=== PATIENT | female | born 2000 | race Caucasian/White ===

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

== ENCOUNTER 2019-04-23 16:27 | Emergency (ER) | payer OTHER ==
[~2019-04-23] VITALS: Ht 160 cm; Wt 76.1 kg
[2019-04-23 16:27] VITALS: BP 138/76
[~2019-04-23 16:27] MED LIST changes: -ACET50TA PO; +BACT800T5 PO; +CIPR-249 PO; +MAPA500T2 PO; +NEXP1IMP SC; +PYRI1TAB5 PO; +ZOFR4TAB14 PO
== END 2019-04-23 17:45 | disposition left against medical advice (07) ==
LOC: M ED 16:27
DX: H92.03 Otalgia, bilateral (principal); Z53.21 Procedure and treatment not carried out due to patient leaving prior to being seen by health care provider

== ENCOUNTER 2019-05-09 20:27 | Emergency (ER) | payer OTHER ==
[~2019-05-09] VITALS: Ht 157.5 cm; Wt 75.6 kg
[2019-05-09 20:28] VITALS: BP 129/77
[2019-05-09] MEDS ORDERED: NORCO, ANEXSIA 5/325MG TABLET (HYDROcodone/ACETAMINOPHEN) PO ONE (21:15)
[2019-05-09 21:33] LABS: BASO % 0.2 % (0.0-1.0); EOS # 0.1 10^3/uL (0.0-0.50); EOS % 1.5 % (0.0-3.0); HEMATOCRIT 42.7 % (36.0-47.0); HEMOGLOBIN 14.2 g/dl (12.0-15.5); LYMPH # 2.5 10^3/uL (1.5-6.5); MEAN CORPUSCULAR HEMOGLOBIN 29.1 pg (27.0-33.0); MEAN CORPUSCULAR HGB CONC 33.3 g/dl (32.0-36.5); MEAN CORPUSCULAR VOLUME 87.5 fl (80.0-96.0); MONO # 0.8 10^3/uL (0.0-0.8); MONO % 8.4 % (0.0-5.0); NEUTROPHILS # 5.5 10^3/uL (1.8-7.7); NEUTROPHILS % 61.7 % (36.0-66.0); PLATELET COUNT, AUTOMATED 332 10^3/uL (150-450); RED BLOOD COUNT 4.88 10^6/uL (4.00-5.40); WHITE BLOOD COUNT 8.9 10^3/uL (4.0-10.0)
[2019-05-09] MEDS ORDERED: KEFL500C17 PO (21:38)
[2019-05-09] MEDS ORDERED: CEPHALEXIN 500 MG CAP PO ONE (21:45)
== END 2019-05-09 21:44 | disposition home or self-care (01) ==
LOC: M ED 20:27
DX: N10 Acute pyelonephritis (principal); Z87.448 Personal history of other diseases of urinary system; Z79.3 Long term (current) use of hormonal contraceptives

== ENCOUNTER 2019-05-27 11:47 | Emergency (ER) | payer OTHER ==
[~2019-05-27] VITALS: Ht 160 cm; Wt 76.5 kg
[~2019-05-27 11:47] MED LIST changes: +KEFL500C17 PO
[2019-05-27 12:12] LABS: BASO % 0.2 % (0.0-1.0); EOS % 0.4 % (0.0-3.0); HEMATOCRIT 39.8 % (36.0-47.0); HEMOGLOBIN 13.4 g/dl (12.0-15.5); LYMPH # 1.2 10^3/uL (1.5-5.0); MEAN CORPUSCULAR HEMOGLOBIN 29.1 pg (27.0-33.0); MEAN CORPUSCULAR HGB CONC 33.7 g/dl (32.0-36.5); MEAN CORPUSCULAR VOLUME 86.5 fl (80.0-96.0); MONO # 0.5 10^3/uL (0.0-0.8); MONO % 5.1 % (0.0-5.0); NEUTROPHILS # 8.2 10^3/uL (1.5-8.5); PLATELET COUNT, AUTOMATED 242 10^3/uL (150-450)
[2019-05-27 12:44] LABS: ALBUMIN 3.6 GM/DL (3.2-5.2); ALT/SGPT 16 U/L (12-78); BILIRUBIN,DIRECT 0.2 MG/DL (0.0-0.2); BILIRUBIN,TOTAL 0.5 MG/DL (0.2-1.0); BLOOD UREA NITROGEN 10 MG/DL (7-18); CARBON DIOXIDE LEVEL 25 MEQ/L (21-32); CHLORIDE LEVEL 109 MEQ/L (98-107); CREATININE FOR GFR 0.68 MG/DL (0.55-1.30); GLUCOSE, FASTING 88 MG/DL (70-100); LIPASE 76 U/L (73-393); POTASSIUM SERUM 4.3 MEQ/L (3.5-5.1); SODIUM LEVEL 140 MEQ/L (136-145); TOTAL PROTEIN 7.2 GM/DL (6.4-8.2)
[2019-05-27] MEDS ORDERED: KETOROLAC 30 MG/ML VIAL (J1885) IV ONE (13:15)
[2019-05-27] MEDS ORDERED: NS 1,000 ML IV ONE (13:15)
[2019-05-27] MEDS ORDERED: ONDANSETRON 4MG/2ML VIAL (J2405) IV ONE (13:15)
[2019-05-27] MEDS: GASTROGRAFIN SOLUTION 30ML PO SCH ×2 (13:35→15:00)
[2019-05-27] MEDS ORDERED: ISOVUE-370 76% 100ML VIAL (Q9967) As Ordered ONE (15:08)
[2019-05-27] MEDS ORDERED: MORPHINE 4 MG/ML 1ML VIAL/SYRINGE (J2270) IV ONE ×2 (15:30→16:00)
[2019-05-27 17:00] VITALS: BP 111/57
[2019-05-27] MEDS ORDERED: PERC5TAB12 PO (17:12)
--- NOTE | 2019-05-27 19:54 | REP ---
REASON: Left lower quadrant pain. COMPARISON: 11/22/2017 CONTRAST: 100 mL Isovue-370. The lung bases are clear and unchanged. The liver, gallbladder, spleen, pancreas, adrenal glands and kidneys are within normal limits. The abdominal aorta and paraaortic regions are within normal limits. The bowel loops and their mesenteries are within normal limits. There is no free fluid or free air. CT PELVIS: In the left adnexa there is an oval shaped 4 cm sized low density structure which has water Hounsfield's unit readings. There is a small amount of free pelvic fluid. There is no pelvic adenopathy. The pelvic bowel loops were unremarkable. Bone window technique throughout the examination shows no change in the osseous structures. IMPRESSION: Probable left ovarian cyst as described above. There is a small amount of free fluid in the pelvis which is probably physiologic. Electronically Signed by Zana Abarca DO 05/28/2019 10:44 A
--- NOTE | 2019-05-27 20:12 | REP ---
REASON: Left sided pain. COMPARISON: 11/21/2017. Transvesical and transvaginal imaging was obtained. Secondary to the patient's complaint of pain bilateral ovarian Doppler was obtained. The uterus measures 8.6 x 4 x 5.4 cm. The parenchymal echo pattern is within normal limits. The endometrial echo complex is within normal limits measuring 3 mm at its greatest thickness. The right ovary measures 3.8 x 3.3 x 2.3 cm within the right ovary there is a 2.6 x 1.7 x 1.3 cm sized anechoic structure which exhibits posterior wall enhancement and increased through transmission. The right ovarian RI is 0.54. The left ovary measures 4.3 x 3.4 x 4.2 cm. Within the left ovary there is a 3.4 x 3.6 x 3.2 cm sized anechoic structure which exhibits posterior wall enhancement and increased through transmission. There are no papillary projections or internal septations. The urinary bladder measures 8 x 8 x 6 cm. IMPRESSION:Bilateral ovarian cysts. There are simple in appearance. There is no evidence of ovarian torsion. There is a small amount of free fluid in the pelvis most likely physiologic. Electronically Signed by Zana Abarca DO 05/28/2019 10:45 A
== END 2019-05-27 17:40 | disposition home or self-care (01) ==
LOC: M ED 11:47
DX: N83.202 Unspecified ovarian cyst, left side (principal); Z79.3 Long term (current) use of hormonal contraceptives
CPT/HCPCS: 74177; 76830; 76856; 80048; 80076; 81001; 83690; 84702; 85025; 93976; 96361; 96374; 96375; 99285; J1885; J2270; J2405; Q9963; Q9967

== ENCOUNTER → 2019-08-19 | Outpatient (REF) | payer OTHER ==
[~2019-08-19] MED LIST changes: +PERC5TAB12 PO
[2019-08-20 14:44] LABS: CHLAMYDIA DNA AMPLIFICATION NEGATIVE (NEGATIVE); GC DNA AMPLIFICATION NEGATIVE (NEGATIVE)
== END ==
LOC: M LAB REF 13:00
PROVIDERS: ATTEND Physician Assistant
DX: R35.0 Frequency of micturition (principal)

== ENCOUNTER 2019-08-26 00:18 | Emergency (ER) | payer OTHER ==
[~2019-08-26] VITALS: Ht 160 cm; Wt 76.8 kg
[2019-08-26] MEDS ORDERED: NS 1,000 ML IV ONE (01:00)
[2019-08-26] MEDS ORDERED: ONDANSETRON 4MG/2ML VIAL (J2405) IV ONE (01:00)
[2019-08-26] MEDS ORDERED: ACETAMINOPHEN 325 MG TAB PO ONE (01:00)
[2019-08-26 01:44] LABS: BASO % 0.3 % (0.0-1.0); EOS % 0.3 % (0.0-3.0); HEMATOCRIT 39.6 % (36.0-47.0); HEMOGLOBIN 13.1 g/dl (12.0-15.5); LYMPH # 1.3 10^3/uL (1.5-5.0); LYMPH % 21.9 % (24.0-44.0); MEAN CORPUSCULAR HEMOGLOBIN 28.3 pg (27.0-33.0); MEAN CORPUSCULAR HGB CONC 33.1 g/dl (32.0-36.5); MEAN CORPUSCULAR VOLUME 85.5 fl (80.0-96.0); MONO # 0.5 10^3/uL (0.0-0.8); NEUTROPHILS # 4.2 10^3/uL (1.5-8.5); NEUTROPHILS % 69.2 % (36.0-66.0); PLATELET COUNT, AUTOMATED 211 10^3/uL (150-450); RED BLOOD COUNT 4.63 10^6/uL (4.00-5.40); WHITE BLOOD COUNT 6.1 10^3/uL (4.0-10.0)
[2019-08-26] MEDS ORDERED: ONDA4TAB6 PO (02:10)
[2019-08-26 02:58] VITALS: BP 116/59
== END 2019-08-26 03:00 | disposition home or self-care (01) ==
LOC: M ED 00:18
DX: O21.9 Vomiting of pregnancy, unspecified (principal); R10.30 Lower abdominal pain, unspecified; Z3A.01 Less than 8 weeks gestation of pregnancy
CPT/HCPCS: 80047; 81001; 84702; 85025; 96361; 96374; 99284; J2405

== ENCOUNTER 2019-10-08 07:41 | Day surgery (SDC) | payer OTHER ==
[~2019-10-08] VITALS: Ht 160 cm; Wt 73.5 kg
[~2019-10-08 07:41] MED LIST changes: +DOXYCYCLINE HYCLATE 100 MG TAB PO ONE; +LIDOCAINE 1% MDV 20ML VIAL SQ PRN; +LR 1,000 ML IV ONE; +ONDA4TAB6 PO
[2019-10-08 08:22] LABS: HEMATOCRIT 39.5 % (36.0-47.0); HEMOGLOBIN 13.2 g/dl (12.0-15.5)
[2019-10-08 08:44] LABS: AMORPHOUS SEDIMENT SMALL (NEGATIVE); APPEARANCE, URINE CLOUDY (CLEAR); BACTERIA, URINE AUTO 2+ (NEGATIVE); BILIRUBIN, URINE AUTO NEGATIVE (NEGATIVE); BLOOD, URINE BLOOD 2+ (NEGATIVE); GLUCOSE, URINE (UA) AUTO NEGATIVE (NEGATIVE); KETONE, URINE AUTO NEGATIVE (NEGATIVE); LEUKOCYTE ESTERASE, URINE AUTO 1+ (NEGATIVE); MUCUS, URINE LARGE (NEGATIVE); NITRITE, URINE AUTO NEGATIVE (NEGATIVE); PROTEIN, URINE AUTO 1+ mg/dL (NEGATIVE); RBC, URINE AUTO 9 /HPF (0-3); SQUAMOUS EPITHELIAL CELL UR AU 54 /HPF (0-6); WBC, URINE AUTO 33 /HPF (0-3)
[2019-10-08 08:46] LABS: COLOR, URINE YELLOW (YELLOW)
[2019-10-08] MEDS ORDERED: MIDAZOLAM INJ 2 MG/2 ML VIAL (J2250) As Ordered ONE (09:02)
[2019-10-08] MEDS ORDERED: KETOROLAC 60 MG/2 ML VIAL (J1885) As Ordered ONE ×3 (09:03→10:35)
[2019-10-08] MEDS ORDERED: propofoL 200 MG/20 ML VIAL As Ordered ONE (09:03)
[2019-10-08] MEDS ORDERED: ONDANSETRON 4MG/2ML VIAL (J2405) As Ordered ONE (09:03)
[2019-10-08] MEDS ORDERED: LIDOCAINE 2% INJ 100 MG/5 ML SDV (FOR ANES.) As Ordered ONE (09:03)
[2019-10-08] MEDS ORDERED: fentaNYL 100 MCG/2 ML INJECTION (J3010) As Ordered ONE (09:03)
[2019-10-08] MEDS ORDERED: dexameTHASONE 4 MG/ML 1ML VIAL (J1100) As Ordered ONE ×2 (09:05→10:05)
[2019-10-08] MEDS ORDERED: LIDOCAINE W/EPINEPHRINE 1% 20ML VIAL As Ordered ONE (10:05)
[2019-10-08] MEDS ORDERED: miSOPROStol 200 MCG TAB (S0191) As Ordered ONE ×2 (10:19→10:20)
[2019-10-08] MEDS ORDERED: METOCLOPRAMIDE INJ 10MG/2ML VIAL (J2765) As Ordered ONE (10:21)
[2019-10-08] MEDS ORDERED: MEPERIDINE INJ 25 MG/ML VIAL (J2175) IV PRN (10:45)
[2019-10-08] MEDS ORDERED: LR 1,000 ML IV SCH ×2 (10:45)
[2019-10-08] MEDS ORDERED: METOCLOPRAMIDE INJ 10MG/2ML VIAL (J2765) IV PRN (10:45)
[2019-10-08] MEDS ORDERED: fentaNYL 100 MCG/2 ML INJECTION (J3010) IV PRN (10:45)
[2019-10-08] MEDS ORDERED: ONDANSETRON 4MG/2ML VIAL (J2405) IV PRN (10:45)
[2019-10-08] MEDS ORDERED: PERCOCET 5MG/325MG TAB PO PRN (10:45)
--- NOTE | 2019-10-08 10:55 | POST-OPPD ---
Postoperative Procedure Note Date Of Procedure: Oct 08, 2019 PREOPERATIVE DIAGNOSIS: Missed POSTOPERATIVE DIAGNOSIS: Missed FINDINGS: products of conception PROCEDURE: suction dilation and curettage SURGEON: Dionne Kaba DO ANESTHESIA: General SPECIMENS: products of conception ESTIMATED BLOOD LOSS: 100 REPLACED: LR 1000cc DRAINS: none COMPLICATIONS: none POSTOPERATIVE CONDITION: stable Detail procedure note: Operative findings: intrauterine contents consistent with product of conception. Description of procedure: The risks, benefits, indications and alternatives of the procedure were reviewed with the patient and informed consent was obtained. The patient was taken to [facility] operating room with IV running. Patient under general with LMA. Patient placed in lithotomy position. Patient vagina and perineum prepped and draped in the usual sterile fashion. Speculum placed vaginally and cervix visualized. The anterior of cervix grasp with single tooth tenaculum. Bilateral uterosacral injected with lidocaine 1% with epi for local block. Cervix dilated to 8mm. Curved suction curette (8mm) used with multiple passes until no additional tissue is retrieved. Medium sharp curette used until a gritty texture is felt on all four quadrants. Suction curette reintroduced to remove remainder of tissue. There was brisk bleeding during curetting. Bleeding subsided with bimanual massage. Cytotec 800mcg placed rectally. All instruments removed from the vagina. Sponge and instruments count correct x 2. Patient was taken out of OR in stable condition. DIONNE KABA DO Oct 08, 2019 10:55
[2019-10-08] MEDS ORDERED: DOXYCYCLINE HYCLATE 100 MG TAB PO ONE (11:00)
[2019-10-08 12:00] VITALS: BP 126/61
== END 2019-10-08 12:41 | disposition home or self-care (01) ==
LOC: M SDC 07:41
PROVIDERS: ATTEND Obstetrics & Gynecology
DX: O02.1 Missed abortion (principal); F41.9 Anxiety disorder, unspecified
CPT/HCPCS: 36415; 59820; 81001; 85014; 85018; 86850; 86900; 86901; 87086; 88305; J1100; J1885; J2250; J2405; J2765; J3010

== ENCOUNTER 2019-10-12 16:03 | Emergency (ER) | payer OTHER ==
[~2019-10-12] VITALS: Ht 160 cm; Wt 72.3 kg
[~2019-10-12 16:03] MED LIST changes: -DOXYCYCLINE HYCLATE 100 MG TAB PO ONE; -LIDOCAINE 1% MDV 20ML VIAL SQ PRN; -LR 1,000 ML IV ONE
[2019-10-12 17:03] LABS: BASO % 0.3 % (0.0-1.0); EOS # 0.1 10^3/uL (0.0-0.5); EOS % 1.6 % (0.0-3.0); HEMATOCRIT 39.8 % (36.0-47.0); HEMOGLOBIN 13.1 g/dl (12.0-15.5); LYMPH # 1.9 10^3/uL (1.5-5.0); LYMPH % 29.8 % (24.0-44.0); MEAN CORPUSCULAR HEMOGLOBIN 28.9 pg (27.0-33.0); MEAN CORPUSCULAR HGB CONC 32.9 g/dl (32.0-36.5); MEAN CORPUSCULAR VOLUME 87.9 fl (80.0-96.0); MONO # 0.5 10^3/uL (0.0-0.8); MONO % 7.7 % (0.0-5.0); NEUTROPHILS # 3.8 10^3/uL (1.5-8.5); NEUTROPHILS % 60.4 % (36.0-66.0); PLATELET COUNT, AUTOMATED 252 10^3/uL (150-450); RED BLOOD COUNT 4.53 10^6/uL (4.00-5.40); WHITE BLOOD COUNT 6.2 10^3/uL (4.0-10.0)
[2019-10-12 17:14] LABS: BLOOD UREA NITROGEN 9 MG/DL (7-18); CALCIUM LEVEL 9.4 MG/DL (8.5-10.1); CARBON DIOXIDE LEVEL 26 MEQ/L (21-32); CHLORIDE LEVEL 109 MEQ/L (98-107); CREATININE FOR GFR 0.78 MG/DL (0.55-1.30); GLUCOSE, FASTING 89 MG/DL (70-100); POTASSIUM SERUM 3.7 MEQ/L (3.5-5.1); SODIUM LEVEL 141 MEQ/L (136-145)
--- NOTE | 2019-10-12 17:28 | REPVR ---
PROCEDURE INFORMATION: Exam: US Pelvis Complete, Transabdominal Exam date and time: 10/12/2019 5:14 PM Age: 19 years old Clinical indication: Other: Heavy vaginal bleeding S/P d&c TECHNIQUE: Imaging protocol: Real-time transabdominal pelvic ultrasound with image documentation. Complete exam. COMPARISON: US PELVIC NON-OB COMPLETE 05/27/2019 4:07 PM FINDINGS: Uterus/cervix: Uterus measures 7.9 x 4.8 x 6.1 cm. Heterogeneous uterine texture may be related to patient acoustic characteristics however the possibility of underlying pathology such as adenomyosis uteri to be considered. Endometrial echo complex 5.9 mm. Right adnexa: Right ovary measures 2.9 x 2.3 x 2.1 cm. Normal flow. Left adnexa: Left ovary measures 3.7 x 1.7 x 2 cm. Normal flow. Free fluid: None. Bladder: Normal. IMPRESSION: Uterus measures 7.9 x 4.8 x 6.1 cm. Heterogeneous uterine texture may be related to patient acoustic characteristics however the possibility of underlying pathology such as adenomyosis uteri to be considered. Should further evaluation be desired correlation with pelvic MRI suggested. Electronically signed by: Fausto Li On 10/12/2019 17:29:27 PM
[2019-10-12] MEDS ORDERED: NS 1,000 ML IV ONE (17:45)
[2019-10-12] MEDS ORDERED: ONDANSETRON 4MG/2ML VIAL (J2405) IV ONE (17:45)
[2019-10-12] MEDS ORDERED: KETOROLAC 30 MG/ML VIAL (J1885) IV ONE (17:45)
[2019-10-12 21:14] VITALS: BP 146/82
--- NOTE | 2019-10-15 15:50 | ED PDOC ---
Post-Departure Follow-Up ft frank ob faxed formal report of pelvic us for fu Maria A Kelley MD Oct 15, 2019 15:50
== END 2019-10-12 21:27 | disposition home or self-care (01) ==
LOC: M ED 16:03
DX: N93.9 Abnormal uterine and vaginal bleeding, unspecified (principal); F17.200 Nicotine dependence, unspecified, uncomplicated; Z87.42 Personal history of other diseases of the female genital tract
CPT/HCPCS: 76856; 80048; 85025; 86850; 86900; 86901; 93976; 96361; 96374; 96375; 99283; J1885; J2405

== ENCOUNTER 2019-11-01 15:11 | Emergency (ER) | payer OTHER ==
[~2019-11-01] VITALS: Ht 160 cm; Wt 71.8 kg
[2019-11-01 15:12] VITALS: BP 136/80
[2019-11-01 16:04] LABS: INFLUENZA A AMPLIFICATION NEGATIVE (NEGATIVE); INFLUENZA B AMPLIFICATION NEGATIVE (NEGATIVE)
--- NOTE | 2019-11-01 17:07 | REP ---
Chest x-ray: Two views. History: Cough and fever . Comparison study: August 05, 2015 . Findings: The lungs are well inflated and free of infiltrate. The pleural angles are sharp. The heart size is normal. Pulmonary vasculature is not increased. No significant bony abnormality is seen. Impression: Negative chest x-ray. Electronically Signed by Franky Ma MD 11/01/2019 04:59 P
[2019-11-01] MEDS ORDERED: ONDANSETRON 4 MG ORAL DISINTEGRATING TAB (Q0162 PER 1MG) PO ONE (17:15)
[2019-11-01] MEDS ORDERED: ONDA4TAB6 PO (17:46)
== END 2019-11-01 18:03 | disposition home or self-care (01) ==
LOC: M ED 15:11
DX: R11.2 Nausea with vomiting, unspecified (principal); R19.7 Diarrhea, unspecified
CPT/HCPCS: 71046; 87502; 87880; 99283; Q0162

== ENCOUNTER → 2019-11-19 | Outpatient (REF) | payer OTHER ==
[2019-11-19 21:10] LABS: INFLUENZA A AMPLIFICATION NEGATIVE (NEGATIVE); INFLUENZA B AMPLIFICATION NEGATIVE (NEGATIVE)
== END ==
LOC: M LAB REF 20:15
PROVIDERS: ATTEND Physician Assistant Medical
DX: J11.1 Influenza due to unidentified influenza virus with other respiratory manifestations (principal)

== ENCOUNTER 2020-03-09 10:03 | Emergency (ER) | payer OTHER ==
[~2020-03-09] VITALS: Ht 160 cm; Wt 73.1 kg
[2020-03-09] MEDS ORDERED: KEFL500C17 PO (12:26)
[2020-03-09 12:30] VITALS: BP 127/78
== END 2020-03-09 12:38 | disposition home or self-care (01) ==
LOC: M ED 10:03
DX: N30.90 Cystitis, unspecified without hematuria (principal); Z32.01 Encounter for pregnancy test, result positive; F41.9 Anxiety disorder, unspecified

== ENCOUNTER 2020-04-20 20:40 | Emergency (ER) | payer OTHER ==
[2020-04-20] MEDS ORDERED: AUGMENTIN 875 MG TAB As Ordered ONE (21:48)
[2020-04-20] MEDS ORDERED: AUGMENTIN 875 MG TAB ONE (21:48)
== END 2020-04-20 21:52 | disposition home or self-care (01) ==
LOC: M ED 20:40
DX: O99.511 Diseases of the respiratory system complicating pregnancy, first trimester (principal); J02.9 Acute pharyngitis, unspecified; Z3A.12 12 weeks gestation of pregnancy

== ENCOUNTER 2020-05-21 20:27 | Emergency (ER) | payer OTHER ==
[~2020-05-21] VITALS: Ht 160 cm; Wt 72.6 kg
[2020-05-21 22:32] LABS: EOS % 0.1 % (0.0-3.0); HEMATOCRIT 37.3 % (36.0-47.0); HEMOGLOBIN 12.6 g/dl (12.0-15.5); LYMPH # 1.4 10^3/uL (1.5-5.0); LYMPH % 19.1 % (24.0-44.0); MEAN CORPUSCULAR HEMOGLOBIN 29.2 pg (27.0-33.0); MEAN CORPUSCULAR HGB CONC 33.8 g/dl (32.0-36.5); MEAN CORPUSCULAR VOLUME 86.3 fl (80.0-96.0); MONO # 0.4 10^3/uL (0.0-0.8); MONO % 5.8 % (0.0-5.0); NEUTROPHILS # 5.5 10^3/uL (1.5-8.5); NEUTROPHILS % 74.6 % (36.0-66.0); PLATELET COUNT, AUTOMATED 235 10^3/uL (150-450); RED BLOOD COUNT 4.32 10^6/uL (4.00-5.40); WHITE BLOOD COUNT 7.4 10^3/uL (4.0-10.0)
[2020-05-21 22:52] LABS: ALBUMIN 2.9 GM/DL (3.2-5.2); ALT/SGPT 11 U/L (12-78); BILIRUBIN,DIRECT 0.2 MG/DL (0.0-0.2); BILIRUBIN,TOTAL 0.4 MG/DL (0.2-1.0); BLOOD UREA NITROGEN 7 MG/DL (7-18); CALCIUM LEVEL 8.9 MG/DL (8.5-10.1); CARBON DIOXIDE LEVEL 23 MEQ/L (21-32); CHLORIDE LEVEL 108 MEQ/L (98-107); CREATININE FOR GFR 0.56 MG/DL (0.55-1.30); GLUCOSE, FASTING 89 MG/DL (70-100); LIPASE 74 U/L (73-393); POTASSIUM SERUM 3.5 MEQ/L (3.5-5.1); SODIUM LEVEL 137 MEQ/L (136-145)
[2020-05-21] MEDS ORDERED: NS 1,000 ML IV ONE (23:45)
[2020-05-21] MEDS ORDERED: ONDANSETRON 4MG/2ML VIAL IV ONE (23:45)
--- NOTE | 2020-05-22 01:05 | REPVR ---
PROCEDURE INFORMATION: Exam: US After First Trimester, Transabdominal Exam date and time: 05/21/2020 12:30 AM Age: 19 years old Clinical indication: complicated by abdominal or pelvic pain; Generalized abdominal pain; Second trimester; Gestational age or lmp: 16w1d; ; Additional info: Abd cramping TECHNIQUE: Imaging protocol: Real-time transabdominal obstetrical ultrasound of the maternal pelvis and a second or third trimester with image documentation. COMPARISON: US PELVIC NON-OB COMPLETE 10/12/2019 5:08 PM FINDINGS: Other findings: Sister matter is unremarkable. Stomach is unremarkable. Gestation: Single live intrauterine gestation. heart rate: Embryonic/ heart rate: heart rate measures 146 bpm. Presentation: Fetus is in cephalic lie. Placenta: No placenta previa. Placenta is posterior. Amniotic fluid: Amniotic fluid is adequate. ANATOMY: Midline falx: Normal. Cerebellum: Normal. Cerebral ventricles: Normal. Cisterna magna: Normal. Septum pellucidum: Normal. Upper lip and nose: Upper lips are unremarkable. Heart four-chamber view, heart size and position: Four-chamber heart is unremarkable. kidneys: Kidneys are not well seen because of age. stomach: Normal. urinary bladder: Bladder is normal. Spine: Normal. Umbilical cord insertion site into the abdomen: Umbilical cord insertion on the fetus is unremarkable. Umbilical cord vessel number: Three-vessel umbilical cord is unremarkable. Arms and hands: Normal upper extremities. Legs and feet: Normal lower extremities. external genitalia: Obscured by position. BIOMETRY: Gestational age (AUA): Estimated gestational age is 16 weeks 5 days. Estimated due date (AUA): Estimated due date is 11/01/2020. Estimated weight: 164 g. Biparietal diameter: BPD is 3.5 cm. 16 weeks 6 days. 75 percentile. Head circumference: Head circumference is 12.5 cm. 16 weeks 4 days. 55 percentile. Abdominal circumference: circumference is 10.4 cm. 16 weeks 3 days. 60th percentile. Femur length: Femur length is 2.3 cm. 17 weeks 0 days. 76 percentile. MATERNAL ANATOMY: Uterus: Unremarkable. No masses. Cervix: Cervix measures 4.9 cm in length. Cervix is closed. Right adnexa: Ovary is obscured by overlying bowel gas. Left adnexa: Ovary is obscured by overlying bowel gas. Urinary bladder: Bladder is unremarkable. IMPRESSION: 1. Single live intrauterine gestation. 2. Estimated gestational age is 16 weeks 5 days. 3. Estimated due date is 11/01/2020. 4. Anatomical survey as described. 5. Recommend follow-up anatomical survey at 19-20 weeks gestational age. Electronically signed by: Coco South On 05/22/2020 01:04:40 AM
[2020-05-22] MEDS ORDERED: ONDA4TAB6 PO (03:12)
[2020-05-22 03:36] VITALS: BP 122/70
== END 2020-05-22 03:37 | disposition home or self-care (01) ==
LOC: M ED 20:27
DX: O21.0 Mild hyperemesis gravidarum (principal); Z3A.16 16 weeks gestation of pregnancy
CPT/HCPCS: 76811; 80048; 80076; 81001; 83690; 85025; 96361; 96374; 99284; J2405

== ENCOUNTER 2020-09-16 00:59 | Outpatient (CLI) | payer OTHER ==
[~2020-09-16] VITALS: Ht 160 cm; Wt 85.0 kg
[2020-09-16 01:13] VITALS: BP 114/64
[2020-09-16 01:45] VITALS: BP 114/64
[2020-09-16 02:23] LABS: BASO % 0.2 % (0.0-1.0); EOS % 0.4 % (0.0-3.0); HEMATOCRIT 30.9 % (36.0-47.0); LYMPH # 1.7 10^3/uL (1.5-5.0); LYMPH % 17.7 % (24.0-44.0); MEAN CORPUSCULAR HEMOGLOBIN 27.4 pg (27.0-33.0); MEAN CORPUSCULAR HGB CONC 32.4 g/dl (32.0-36.5); MEAN CORPUSCULAR VOLUME 84.7 fl (80.0-96.0); MONO # 0.7 10^3/uL (0.0-0.8); MONO % 7.1 % (0.0-5.0); NEUTROPHILS % 73.6 % (36.0-66.0); PLATELET COUNT, AUTOMATED 224 10^3/uL (150-450); RED BLOOD COUNT 3.65 10^6/uL (4.00-5.40); WHITE BLOOD COUNT 9.6 10^3/uL (4.0-10.0)
[2020-09-16 02:29] LABS: APPEARANCE, URINE CLOUDY (CLEAR); BACTERIA, URINE AUTO 1+ (NEGATIVE); BILIRUBIN, URINE AUTO NEGATIVE (NEGATIVE); BLOOD, URINE BLOOD NEGATIVE (NEGATIVE); COLOR, URINE YELLOW (YELLOW); GLUCOSE, URINE (UA) AUTO NEGATIVE (NEGATIVE); KETONE, URINE AUTO TRACE mg/dL (NEGATIVE); LEUKOCYTE ESTERASE, URINE AUTO 1+ (NEGATIVE); MUCUS, URINE SMALL (NEGATIVE); NITRITE, URINE AUTO NEGATIVE (NEGATIVE); PROTEIN, URINE AUTO 1+ mg/dL (NEGATIVE); RBC, URINE AUTO 2 /HPF (0-3); SPECIFIC GRAVITY URINE AUTO 1.021 (1.002-1.035); SQUAMOUS EPITHELIAL CELL UR AU 9 /HPF (0-6); WBC, URINE AUTO 42 /HPF (0-3)
[2020-09-16 02:37] VITALS: BP 105/59
--- NOTE | 2020-09-16 06:37 | IPNPDOC ---
Text Note Date of Service The patient was seen on 09/16/20. NOTE Mi is a 19yo at 32+6wks presenting to L&D for c/o painful ctx's x2 hours that have progressed q2-3min apart. She reports having intercourse in the last 24hrs but not immediately prior to onset of ctx's. She also reports losing mucus plug. Denies VB, LOF, or DFM. Denies any other complaints. Reports uncomplicated thus far. Denies h/o PTB in previous . Vitals: normotensive, afebrile NST: reactive Brantley: ctx's q2-3min PE: Gen: well-appearing although noted to be uncomfortable with ctx's. AAO x3 HEENT: NC/AT, airway patent and self-maintained RESP: no exaggerated respiratory effort noted CARDS: well-perfused, no edema ABD: soft, nontender, gravid : NEFG, no pooling, neg valsalva, cervix noted to be dilated 2/80/-2, no VB Ext: no edema, no calf tenderness Labs: UA: concerning for UTI with 42WBCs Urine culture: pending CBC: as below A/P: 19yo at 32+6wks presenting for c/o ctx's and found to have cervical dilation to 2cm with concern for PTL, UTI, and dehydration. -Admit to OBS status at this time for close observation -IV fluids LR 1000ml given as IV bolus. encourage PO hydration -Rocephin for UTI -GBS collected, PCN ordered given status with GBS unk status -BTMZ given with repeat dose ordered q24hrs -Procardia given for tocolysis with resolution of ctx's -Continuous EFM at this time, consider decreasing to NST daily -If patient has resolution of symptoms, consider disposition home with strict labor precautions and close outpatient f/u VS,Fishbone, I+O VS, Fishbone, I+O Laboratory Tests 09/16/20 02:00 Vital Signs Date Time Temp Pulse Resp B/P (MAP) Pulse Ox O2 Delivery O2 Flow Rate FiO2 09/16/20 02:37 97.3 81 105/59 (74) 09/16/20 01:13 18 BECCA PERALES DO Sep 16, 2020 06:37
--- NOTE | 2020-09-16 09:12 | IPNPDOC ---
Obstetrical Progress Note Date of Service Sep 16, 2020 Subjective 19yo at 32w6d with YARON of 05 NOV 2020 in triage for contractions and treated for UTI and was found to be 2 cm dilated. She reports that she is feeling better and denies contractions. She has received 1 dose of betamethasone around 0200 this morning. Objective Vital Signs Date Time Temp Pulse Resp B/P (MAP) Pulse Ox O2 Delivery O2 Flow Rate FiO2 09/16/20 02:37 97.3 81 105/59 (74) 09/16/20 01:13 18 Assessment Heart Rate (FHR): 125 Variability: Moderate Accelerations: Present Decelerations: None Tocometer Contractions: No Sterile Vaginal Examination Dilation: 2cm Effacement (%): 70% Station: -3 Cervical Consistency: Medium Cervical Position: Middle Postion/Presentation: Cephalic presentation Assessment and Plan Age: 19 : 3 Term: 1 Pre-term: 0 Abortions: 1 Livin EGA at Admission: 32 (+6) Weeks & Days 32w6d Status: Reassuring Anticipate: Other Additional Comments Discharge to home, certified not in labor Recommended for pelvic rest until 37 weeks Prescription for keflex QID x10 days Return for betamethasone on 17 SEP 2020 at 0800 Keep next appointment at [facility] PROSTHETIC AIDE on 26 SEP 2020 Discussed daily prophylaxis UTI treatment to be prescribed at next visit Recommended to increase hydration with 3-4 liters of water per day Recommended to complete UC at lab at [facility] after 07 OCT 2020 FKC and PTL precautions discussed Return to L&D if symptoms persist or worsen ERIKA ALEXANDER CNM Sep 16, 2020 09:12
[2020-09-17] MEDS ORDERED: MULTTAB20 PO (09:24)
== END 2020-09-16 09:10 | disposition home or self-care (01) ==
LOC: M LDO 00:59
DX: O23.43 Unspecified infection of urinary tract in pregnancy, third trimester (principal); Z3A.32 32 weeks gestation of pregnancy; O47.03 False labor before 37 completed weeks of gestation, third trimester
CPT/HCPCS: 59025; 81001; 85025; 86780; 86850; 86900; 86901; 87081; 87088; 87186; 96365; 96366; 96372; G0378; G0463; J0696; J0702

== ENCOUNTER 2020-09-17 09:06 | Outpatient (CLI) | payer OTHER ==
[~2020-09-17] VITALS: Ht 160 cm; Wt 84.8 kg
[2020-09-17 09:21] VITALS: BP 126/72
[2020-09-17] MEDS ORDERED: MULTTAB20 PO (09:24)
[2020-09-17] MEDS ORDERED: BETAMETHASONE SOLUSPAN 6MG/ML 5ML VIAL (J0702 PER 3MG) IM ONE (09:45)
== END 2020-09-17 10:15 | disposition home or self-care (01) ==
LOC: M LDO 09:06
PROVIDERS: ATTEND Obstetrics & Gynecology
DX: O47.03 False labor before 37 completed weeks of gestation, third trimester (principal); Z3A.33 33 weeks gestation of pregnancy
CPT/HCPCS: 59025; 96372; G0378; G0463; J0702

== ENCOUNTER 2020-09-20 14:27 | Inpatient (IN) | payer OTHER ==
[~2020-09-20] VITALS: Ht 160 cm; Wt 85.1 kg
[~2020-09-20 14:27] MED LIST changes: +MULTTAB20 PO
[2020-09-20 14:47] VITALS: BP 111/56
[2020-09-20 16:22] VITALS: BP 111/57
[2020-09-20] MEDS ORDERED: ACETAMINOPHEN TAB 650MG DOSE (2X325MG) PO PRN (16:30)
[2020-09-20] MEDS ORDERED: diphenhydrAMINE 25MG CAP PO PRN (16:30)
[2020-09-20] MEDS ORDERED: DOCUSATE SODIUM 100MG CAPSULE PO PRN (16:30)
[2020-09-20 16:36] LABS: HEMATOCRIT 32.2 % (36.0-47.0); HEMOGLOBIN 10.1 g/dl (12.0-15.5); MEAN CORPUSCULAR HEMOGLOBIN 26.4 pg (27.0-33.0); MEAN CORPUSCULAR HGB CONC 31.4 g/dl (32.0-36.5); MEAN CORPUSCULAR VOLUME 84.1 fl (80.0-96.0); PLATELET COUNT, AUTOMATED 241 10^3/uL (150-450); RED BLOOD COUNT 3.83 10^6/uL (4.00-5.40); WHITE BLOOD COUNT 12.4 10^3/uL (4.0-10.0)
[2020-09-20] MEDS: AMPICILLIN SOD 2 GM in D5W MINI-BAG PLUS 100 ML IV SCH ×2 (17:15→23:01)
[2020-09-20 17:39] LABS: CHLAMYDIA DNA AMPLIFICATION NEGATIVE (NEGATIVE); GC DNA AMPLIFICATION NEGATIVE (NEGATIVE)
--- NOTE | 2020-09-20 17:41 | HPEPDOC ---
Obstetrical History & Physical General Date of Admission Sep 20, 2020 at 16:02 History of Present Illness Presents to triage with c/o spotting this AM, initially denies LOF, states occasional cramping and positive movement. After triage evaluation pt states feeling more wet since 1600 on 19Sep2020. Chief Complaint: LOF, pre-term Information Provided By: Patient Age: 19 : 3 Term: 1 Pre-term: 0 Abortions: 1 Livin Care Care: Good Care Dating Final EDC: Nov 05, 2020 Final EDC for Daily Update: Nov 05, 2020 Final EDC by: LMP LMP: January 29, 2021 EGA at Admission: 33 (+3) Antepartum Course Diagnos(e)s PTL, UTI in Height (inches): 63 Pre- weight (lbs.): 167 Admission Weight (lbs.): 190 Change in Weight (lbs.): 23 Past Medical History Past Obstetrical History : Past Obstetrical History: Multigravida (2015) Date of Delivery: Jun 12, 2016 Gestation: 37 Type of Delivery: Spontaneous Vaginal Del. Sex of : Female Weight of (grams): 0. (6#11) Complications: No BIZTALK CONSULTANT History: Spontaneous Past Medical History Medical History migraines Surgical History: Dilatation and Curettage Family History Significant Family History: Cancer (pgm- throat cancer), Diabetes (mgm) Social History Social history Dependant daughter, FOB involved Marital Status: Single Family situation: Spouse/partner home Psychosocial History: No pertinent psych hx * Smoker: non-smoker Alcohol: Denies Drugs: denies Abuse Violence Screening Have you been hit/kicked/slapp: No Have you been sexually assault: No Imunizations Tdap status: current Influenza Status: declined Allergies Coded Allergies: No Known Allergies (Unverified , 04/03/16) Medications Scheduled No122/Iron/Folic Acid ( Multi Tablet) 1 Each Tablet, 1 TAB PO DAILY Physical Examination Physical Examination GENERAL: Alert and oriented times three. BREAST: . ABDOMEN: Gravid and non-tender to touch. FETUS: Is vertex (VTX) by sterile vaginal examination (SVE), fetus is vertex (VTX) by Luis Manuel. HEART RATE: Regular rate and rhythm. LUNGS: Clear to auscultation (CTA). EXTREMITIES: No edema. No clonus. Deep tendon reflexes (DTRs) + . Other physical findings GC/CT, GBS collected and sent. WP/NELI negative, minimal discharge noted, visible membranes, ferning positive. Cervical exam 350/-3 Vital Signs/I&O Vital Signs Date Time Temp Pulse Resp B/P (MAP) Pulse Ox O2 Delivery O2 Flow Rate FiO2 09/20/20 16:22 98.7 92 16 111/57 (75) Laboratory Data [facility] Laboratory Tests 2 09/20/20 15:57: Microbiology Microbiology 09/20/20 Group B Streptococcus Screen (ANDRE), Received Pending Urine Culture: Urinary Tract Infection Pertinent Laboratoy Data Blood Type: O+ RBC Antibody Screen: Negative HIV: Negative Hepatitis B: Negative Rapid Plasma Reagin: Nonreactive Rubella: Immune Chlamydia/Gonorrhea: Negative Group B Streptococcus: Unknown Quad Screen Test: Declined Cystic Fibrosis: Negative Anatomy Ultrasound Ultrasound Date: Jun 18, 2020 Placenta Location: Anterior Normal Anatomy: Yes Placenta Previa: No Estimated Weight (grams): 349 Steroid Therapy Steroid Therapy: Yes Date #1: Sep 16, 2020 Date #2: Sep 17, 2020 Reason PTL Vaginal Examination Dilation: 3 cm Effacement: 50% Station: -3 Cervical Consistency: Soft Cervical Position: Middle Presentation: Cephalic presentation Assessment Heart Rate (FHR): 140 Variability: Moderate Accelerations: Positive Decelerations: None Tocometer Contractions: No Multi-drug resistant Organism: No history of MDRO Assessment/Plan Assessment Mi is a 19-year-old (G)3 para (P)1-0-1-1 at 33+3 weeks by 10+6-week ultrasound. Presents to Labor and Delivery (L&D) for c/o bleeding with finding of PPROM, Betamethasone completed on 17 Sep 2020. Plan Admit and orient. Hide Paster and consent. Diet: reg. Group B Streptococcus (GBS) unk, screening pending. Labs and intravenous (IV) per unit protocol. Counseled on treatment for PPROM and prophylaxis. Saline lock IV, Ampicillin 2gm IV q6hrs x48 hrs Anticipate . Consult NICU DL KANG CNM Sep 20, 2020 17:40
[2020-09-20 19:30] VITALS: BP 127/58
[2020-09-20 22:31] VITALS: BP 107/53
[2020-09-21] VITALS (10 sets, daily range): BP systolic 94–146; BP diastolic 53–67
[2020-09-21] MEDS: AMPICILLIN SOD 2 GM in D5W MINI-BAG PLUS 100 ML IV SCH ×4 (05:04→23:29)
--- NOTE | 2020-09-21 09:33 | IPNPDOC ---
Obstetrical Progress Note Date of Service Sep 21, 2020 Subjective Patient seen this morning. she reports she is doing well without any contractions. she continues to notice some clear vaginal discharge with going to the bathroom. she reports regular movements. she denies any fevers, chills, or fundal tenderness. she has no concerns this morning. FHT: 125, Mod nicholas,+accels, -Decels---Cat I tracing [place]: no contractions SVE: Deferred US: cephalic, MVP 3.7cm PE: Vitals are reviewed and wnl Heart: normal rate Lungs: Normal work of breathing Abd: non tender, no fundal tenderness EXT: Grossly normal Labs GBS pending GC/CT: Neg A/P Mi is a 19-year-old (G)3 para (P)1-0-1-1 at 33+4 weeks by 10+6-week ultrasound admitted for PPROM, Betamethasone completed on 17 Sep 2020. She is on day 2 of latency antibiotics- Ampicillin 1g q6hrs, will transition to 250mg PO amoxicillin starting tomorrow. will goal to delivery at 34 weeks. NICU has been consulted. will continue to monitor for development of chorio. Continue regular diet Continue continuous monitoring induce on tuesday @ 34 weeks. patient is aware of plan of care. Objective Vital Signs Date Time Temp Pulse Resp B/P (MAP) Pulse Ox O2 Delivery O2 Flow Rate FiO2 09/21/20 05:08 97.9 09/21/20 05:04 75 96/53 (67) 09/21/20 03:15 18 MEERA LEYVA MD Sep 21, 2020 09:28
[2020-09-21] MEDS: PRENATAL VITAMINS CHEWABLE TABLET PO SCH (12:10)
[2020-09-22 02:41] VITALS: BP 113/51
[2020-09-22 05:19] VITALS: BP 100/54
[2020-09-22] MEDS: AMPICILLIN SOD 2 GM in D5W MINI-BAG PLUS 100 ML IV SCH (05:20)
--- NOTE | 2020-09-22 05:54 | IPNPDOC ---
Obstetrical Progress Note Date of Service Sep 22, 2020 Subjective Patient seen this morning. she reports she is doing well without any contractions. she continues to notice some clear vaginal discharge with going to the bathroom. she reports regular movements. she also notes some mild contractions every 8-10 min, but unchanged in power since admission. she denies any fevers, chills, or fundal tenderness. she has no concerns this morning. FHT: 135, Mod nicholas,+accels, -Decels---Cat I tracing [place]: no contractions SVE: Deferred US ( on 09/21/20) : cephalic, MVP 3.7cm PE: Vitals are reviewed and wnl Heart: normal rate Lungs: Normal work of breathing Abd: non tender, no fundal tenderness EXT: Grossly normal Labs GBS pending GC/CT: Neg A/P Mi is a 19-year-old (G)3 para (P)1-0-1-1 at 33+5 weeks by 10+6-week ultrasound admitted for PPROM, Betamethasone completed on 17 Sep 2020. She is on day 3 of latency antibiotics- will transition to 250mg PO amoxicillin starting today. will goal to delivery at 34 weeks. NICU has been consulted. will continue to monitor for development of chorio. Continue regular diet Continue continuous monitoring induce on tuesday @ 34 weeks. patient is aware of plan of care. Objective Vital Signs Date Time Temp Pulse Resp B/P (MAP) Pulse Ox O2 Delivery O2 Flow Rate FiO2 09/22/20 05:26 97.6 09/22/20 05:19 71 100/54 (69) 09/21/20 17:40 18 MEERA LEYVA MD Sep 22, 2020 05:54
[2020-09-22] MEDS ORDERED: SLF 3 ML SYR IV PRN (07:15)
[2020-09-22] MEDS: PRENATAL VITAMINS CHEWABLE TABLET PO SCH (10:28)
[2020-09-22 13:36] VITALS: BP 122/76
[2020-09-22] MEDS: AMOXICILLIN 250 MG CAP PO SCH ×2 (13:39→21:34)
[2020-09-22] MEDS: SLF 3 ML SYR IV SCH ×2 (13:40→21:34)
[2020-09-22 18:20] VITALS: BP 135/69
[2020-09-22 22:00] VITALS: BP 134/60
[2020-09-23 02:00] VITALS: BP 109/52
[2020-09-23 06:00] VITALS: BP 124/56
[2020-09-23] MEDS: AMOXICILLIN 250 MG CAP PO SCH ×3 (06:43→21:45)
[2020-09-23] MEDS: SLF 3 ML SYR IV SCH ×3 (06:44→21:17)
--- NOTE | 2020-09-23 08:57 | IPNPDOC ---
Obstetrical Progress Note Date of Service Sep 23, 2020 Subjective Mi reports she is doing well. Denies any ctx's, VB, or DFM. She continues to leak clear fluid. Objective Vital Signs Date Time Temp Pulse Resp B/P (MAP) Pulse Ox O2 Delivery O2 Flow Rate FiO2 09/23/20 06:00 98.0 71 18 124/56 (78) 99 Room Air Assessment Heart Rate Tracing: Other (NST reactive) Tocometer Contractions: No Assessment and Plan Status: Reassuring Group B Streptococcus: Positive Additional Comments PE: Vitals are reviewed and wnl CARDS: well-perfused Lungs: Normal work of breathing Abd: non-tender, no fundal tenderness EXT: Grossly normal Labs GBS POSITIVE GC/CT: Neg A/P Mi is a 19-year-old (G)3 para (P)1-0-1-1 at 33+6 weeks by 10+6-week ultrasound admitted for PPROM, Betamethasone completed on 17 Sep 2020. She is on day 4 of latency antibiotics - will switch to PCN once in labor for GBS ppx NICU has been consulted. will continue to monitor for development of chorio. Continue regular diet Continue APFTs BID Plan to induce tomorrow @ 34 weeks. Patient is aware of plan of care. BECCA PERALES DO Sep 23, 2020 08:57
[2020-09-23 09:55] VITALS: BP 142/75
[2020-09-23] MEDS: PRENATAL VITAMINS CHEWABLE TABLET PO SCH (10:18)
[2020-09-23 12:10] LABS: HEMATOCRIT 30.6 % (36.0-47.0); HEMOGLOBIN 9.5 g/dl (12.0-15.5); MEAN CORPUSCULAR HEMOGLOBIN 26.6 pg (27.0-33.0); MEAN CORPUSCULAR VOLUME 85.7 fl (80.0-96.0); PLATELET COUNT, AUTOMATED 203 10^3/uL (150-450); RED BLOOD COUNT 3.57 10^6/uL (4.00-5.40); WHITE BLOOD COUNT 10.2 10^3/uL (4.0-10.0)
[2020-09-23 14:03] VITALS: BP 148/67
[2020-09-23 17:59] VITALS: BP 140/69
[2020-09-23 22:20] VITALS: BP 134/73
[2020-09-24] VITALS (27 sets, daily range): BP systolic 112–140; BP diastolic 52–85
[2020-09-24] MEDS: SLF 3 ML SYR IV SCH (06:00)
[2020-09-24] MEDS ORDERED: PENICILLIN G POTASSIUM IV 5 MU in D5W MINI-BAG PLUS 100 ML IV STA ×2 (06:13→06:55)
[2020-09-24] MEDS ORDERED: LR 1,000 ML IV SCH (07:05)
--- NOTE | 2020-09-24 07:35 | IPNPDOC ---
Text Note Date of Service The patient was seen on 09/24/20. NOTE Mi is a 19 yo at 34+0 weeks gestation today who was admitted several days ago for PPROM. She has recently completed a course of BTMZ and 5 days of latency antibiotics. Plan was to proceed with delivery at 34 weeks. She has been transferred to L&D today for this reason. Mi reports feeling well today, just nervous. She denies any bleeding or significant contractions. She endorses continued clear leaking fluid. FHR tracing: Cat I with moderate variability, +accels, no decels Plan to proceed with IOL today. Will allow breakfast and then begin pitocin. She was 3cm dilated at her last cervical exam several days ago. Will administer PCN for GBS prophylaxis (apparently she was GBS positive earlier in the ). We reviewed all risks of IOL with pitocin and she elects to proceed. Can have epidural if and when desired. Mi understands her baby will spend time in the NICU after delivery. All patient questions answered. DO JOHN Story Fishbone, I+O Alejandro LOPEZ, I+O Laboratory Tests 09/23/20 11:41 Vital Signs Date Time Temp Pulse Resp B/P (MAP) Pulse Ox O2 Delivery O2 Flow Rate FiO2 09/24/20 06:21 97.5 81 18 140/75 (96) 09/24/20 06:03 96 Room Air SHAMA CONNORS DO Sep 24, 2020 07:35
--- NOTE | 2020-09-24 10:10 | IPNPDOC ---
Text Note Date of Service The patient was seen on 09/24/20. NOTE REVIEW PATIENT PROGRESS 09/24/2020 19YO ADMITTED 09/20/2020 HX SPOTTING SROM CLEAR LIQUOR APPARENTLY BEEN LEAKING 09/19/2020 AT 33.3 WEEKS. FERN POSITIVE GBS PENDING EXAM -3/50%/3 CM . STARTED STEROIDS AND GBS ANTIBIOTICS PLANNED IOL 09/24/2020.SEEN TODAY CATEGORY 1 STRIP OCCASIONAL CONTRACTIONS CERVIX UNCHANGED. PLAN RESUME ANTIBIOTICS , PITOCIN AND COOK'S CATHETER EPIDURAL PRN VS,Fishbone, I+O VS, Fishbone, I+O Laboratory Tests 09/23/20 11:41: White Blood Count 10.2H, Red Blood Count 3.57L, Hemoglobin 9.5L, Hematocrit 30.6L, Mean Corpuscular Volume 85.7, Mean Corpuscular Hemoglobin 26.6L, Mean Corpuscular Hemoglobin Concent 31.0L, Red Cell Distribution Width 13.8, Platelet Count 203, Nucleated Red Blood Cells % (auto) 0.0 Laboratory Tests 09/23/20 11:41 Vital Signs Date Time Temp Pulse Resp B/P (MAP) Pulse Ox O2 Delivery O2 Flow Rate FiO2 09/24/20 06:21 97.5 81 18 140/75 (96) 09/24/20 06:03 96 Room Air Laboratory Tests 09/23/20 11:41: White Blood Count 10.2H, Red Blood Count 3.57L, Hemoglobin 9.5L, Hematocrit 30.6L, Mean Corpuscular Volume 85.7, Mean Corpuscular Hemoglobin 26.6L, Mean Corpuscular Hemoglobin Concent 31.0L, Red Cell Distribution Width 13.8, Platelet Count 203, Nucleated Red Blood Cells % (auto) 0.0 Naveen Lo MD Sep 24, 2020 10:09
[2020-09-24] MEDS: OXYTOCIN DRIP 30 UNITS in IV 1 EA IV SCH ×2 (10:15→13:02)
[2020-09-24 10:17] LABS: HEMATOCRIT 32.6 % (36.0-47.0); HEMOGLOBIN 10.2 g/dl (12.0-15.5); MEAN CORPUSCULAR HEMOGLOBIN 26.9 pg (27.0-33.0); MEAN CORPUSCULAR HGB CONC 31.3 g/dl (32.0-36.5); PLATELET COUNT, AUTOMATED 233 10^3/uL (150-450); RED BLOOD COUNT 3.79 10^6/uL (4.00-5.40); WHITE BLOOD COUNT 11.8 10^3/uL (4.0-10.0)
[2020-09-24] MEDS ORDERED: PENICILLIN G POTASSIUM IV 2.5 MU in IV 1 EA IV SCH (13:00)
[2020-09-24] MEDS ORDERED: BUTORPHANOL 2 MG/ML INJ (J0595) IV ONE (16:45)
[2020-09-24] MEDS ORDERED: PROMETHAZINE INJ 25 MG/ML VIAL (J2550) IV ONE (16:45)
[2020-09-24 18:02] LABS: CORD GAS HCO3 A 26.2 MEQ/L; CORD GAS O2 SAT A 42.3 %; CORD GAS PH A 7.272 UNITS; CORD GAS PO2 A 19.4 mmHg; CORD GAS SBC A 21.3 MEQ/L; CORD GAS TCO2 A 27.9 MEQ/L
[2020-09-24 18:04] LABS: CORD GAS ABE V -4.5; CORD GAS HCO3 V 20.1 MEQ/L; CORD GAS O2 SAT V 84.6 %; CORD GAS PCO2 V 36.2 mmHg; CORD GAS PH V 7.362 UNITS; CORD GAS PO2 V 38.1 mmHg; CORD GAS SBC V 20.5 MEQ/L; CORD GAS TCO2 V 21.2 MEQ/L
[2020-09-24] MEDS ORDERED: METHYLERGONOVINE MALEATE 0.2 MG TAB PO PRN (18:15)
[2020-09-24] MEDS ORDERED: RHOGAM 300 MCG (1500 IU) INJ (J2790) IM SCH (18:15)
[2020-09-24] MEDS ORDERED: BENZOCAINE 20% HEMORRHOIDAL OINTMENT 28GM TUBE TOP PRN (18:15)
[2020-09-24] MEDS ORDERED: ACETAMINOPHEN TAB 650MG DOSE (2X325MG) PO PRN (18:15)
[2020-09-24] MEDS ORDERED: MOM 30ML SUSPENSION UDC PO PRN (18:15)
[2020-09-24] MEDS ORDERED: OXYTOCIN DRIP 30 UNITS in IV 1 EA IV ONE (18:15)
[2020-09-24] MEDS ORDERED: DOCUSATE SODIUM 100MG CAPSULE PO PRN (18:15)
[2020-09-24] MEDS ORDERED: OXYTOCIN INJ 10 UNITS/ML VIAL (J2590) IV ONE (18:15)
[2020-09-24] MEDS ORDERED: ANUSOL HC CREAM 30GM TOP PRN (18:15)
[2020-09-24] MEDS ORDERED: IBUPROFEN 800 MG TAB PO PRN (18:15)
[2020-09-24] MEDS ORDERED: MEASLES,MUMPS,RUBELLA VACCINE INJ (MMR-II) (90707) SC SCH (18:15)
[2020-09-24] MEDS: ACETAMINOPHEN 500 MG TAB PO PRN (20:06)
[2020-09-25] MEDS: ACETAMINOPHEN 500 MG TAB PO PRN ×2 (04:29→14:40)
[2020-09-25 06:00] VITALS: BP 122/55
[2020-09-25 06:42] LABS: HEMOGLOBIN 10.3 g/dl (12.0-15.5); MEAN CORPUSCULAR HEMOGLOBIN 26.7 pg (27.0-33.0); MEAN CORPUSCULAR HGB CONC 31.2 g/dl (32.0-36.5); MEAN CORPUSCULAR VOLUME 85.5 fl (80.0-96.0); PLATELET COUNT, AUTOMATED 260 10^3/uL (150-450); RED BLOOD COUNT 3.86 10^6/uL (4.00-5.40); WHITE BLOOD COUNT 10.9 10^3/uL (4.0-10.0)
--- NOTE | 2020-09-25 07:53 | IPNPDOC ---
Progress Note Date of Service: Sep 25, 2020 Day#: 1 Progress Note SUBJECT: 19year-old 3 now Para 3 status post uncomplicated spontaneous vaginal delivery at 34 weeks' MALE 4 pounds 14 ounces 2210 grams) , doing well day # 1 . She has been ambulating, voiding spontaneously without issue and tolerating regular diet. Breast feeding without issue. Reports lochia is [like a normal period]. Patient is ambulating well. [Reports some cramping with . Denies any pain. Voiding and stooling without difficulty]. OBJECTIVE: VITAL SIGNS: Within normal limits, afebrile. Alert and oriented times three. Breath sounds clear to auscultation. Heart rate: Regular rate and rhythm, no murmurs, rubs or gallops. Abdomen: Fundus firm at U-2. Soft, NTTP. [Minimal] lochia. ASSESSMENT: 19 -year-old 3 now Para 2 status post uncomplicated spontaneous vaginal delivery after BEING STEROID COMPLETE AND GBS COVERAGE with spontaneous rupture of membranes (SROM), delivered at 34 weeks', doing well on day 1. Vitals within normal limits, afebrile, hemodynamically stable with no evidence of infection. PLAN: 1. Discharge tomorrow 2. Tylenol and Motrin for pain. 3. Encourage breast feeding and ambulation. 4. discuss at 6 week pp visit. 5. Routine PP visit in 6 weeks in clinic. 6. Discussed return precautions at length. VS, I&O, 24H, Fishbone Vital Signs/I&O Vital Signs Date Time Temp Pulse Resp B/P (MAP) Pulse Ox O2 Delivery O2 Flow Rate FiO2 09/25/20 06:00 98.2 83 18 122/55 (77) 09/24/20 06:03 96 Room Air I&O- Last 24 Hours up to 6 AM 09/25/20 06:00 Intake Total 208 ml Output Total 900 ml Balance -692 ml Laboratory Data 24H LABS Laboratory Tests 2 09/24/20 10:09: Nucleated Red Blood Cells % (auto) 0.0 09/24/20 17:56: Cord Arterial Blood pH 7.272, Cord Arterial Blood PCO2 58.0, Cord Arterial Blood PO2 19.4, Cord Arterial Blood HCO3 26.2, Cord Arterial Blood Total CO2 27.9, Cord Arterial Blood Base Excess -2.0, Cord Arterial Base Excess (Standard 21.3, Cord Arterial Bld Oxygen Saturation 42.3, Cord Venous Blood pH 7.362, Cord Venous Blood PCO2 36.2, Cord Venous Blood PO2 38.1, Cord Venous Blood HCO3 20.1, Cord Venous Blood Total CO2 21.2, Cord Venous Base Excess (Actual) -4.5, Cord Venous Base Excess (Standard) 20.5, Cord Venous Blood Oxygen Saturation 84.6 09/25/20 05:44: Nucleated Red Blood Cells % (auto) 0.0 CBC/BMP Laboratory Tests 09/24/20 10:09 09/25/20 05:44 Microbiology Microbiology 09/20/20 Group B Streptococcus Screen (ANDRE) - Final, Complete Naveen Lo MD Sep 25, 2020 07:53
[2020-09-25 08:45] VITALS: BP 122/55
[2020-09-25] MEDS: IBUPROFEN 600MG TAB PO PRN ×2 (08:50→19:52)
[2020-09-25] MEDS: PRENATAL VITAMINS CHEWABLE TABLET PO SCH (08:50)
--- NOTE | 2020-09-25 14:44 | DN ---
DELIVERY NOTE DATE OF DELIVERY: 09/24/2020 TIME OF : GENDER: Male. APGARS: 9 and 9. LACERATIONS: None. ANESTHESIA: ESTIMATED BLOOD LOSS: COUNTS: DESCRIPTION OF DELIVERY: This 19-year-old 3, para 2, presently at 34 weeks of gestation for induction of labor because of prolonged rupture of membranes since 09/19/2020. She was GBS positive treated appropriately. Steroid complete. Induction of labor on 09/24/2020. She had IV pain medications. Delivered spontaneously a live male infant 4 pounds 14 ounces (2210 grams). Apgars of 9 and 9 at one and five minutes respectively. Cord around the neck x1 loose. Dr. Casper in attendance for resuscitation. Arterial pH was 7.27, base excess -2.0; venous pH 7.36, base excess -4.5. She had a spontaneous delivery of the placenta three vessels. Membranes and tissues intact. Examination of the vagina anterior, posterior, and lateral hines were complete. No evidence of tears or laceration. The sphincter was tight and the mucosa was intact. In summary, we have a 34 week gestation who delivered a live male infant after prolonged rupture of membranes. GBS positive, steroid complete, antibiotic prophylactically. Patient and baby tolerating procedure well.
[2020-09-25 18:13] VITALS: BP 124/66
[2020-09-26 05:45] VITALS: BP 142/80
[2020-09-26] MEDS ORDERED: AMER20OI TOP (06:44)
[2020-09-26] MEDS ORDERED: IBUP-1022 PO (06:44)
[2020-09-26] MEDS ORDERED: ACET-683 PO (06:44)
--- NOTE | 2020-09-26 07:02 | DS.PDOC ---
Discharge Summary General Date of Admission Sep 20, 2020 at 16:02 Date of Discharge Sep 26, 2020 Discharge Summary HOSPITAL COURSE: Mi is a 19 yo G3 now P2 who was admitted to hospital initially for PROM at 33+3 weeks gestation. She received latency antibiotics and completed a course of BTMZ. She ultimately underwent an IOL at 34+0 weeks on [id number]. She delivered that same day via uncomplicated . Infant did well but was taken to the NICU for prematurity. Her course has been unremarkable. On her day of discharge she met all appropriate discharge criteria. She was ambulating, voiding, tolerating a regular diet, had minimal lochia, and her pain was well controlled with PO pain medications. DISCHARGE MEDICATIONS: Please see below. ALLERGIES: Please see below. PHYSICAL EXAMINATION ON DISCHARGE: VITAL SIGNS: Please see below. GENERAL: AAOX3, laying in bed, NAD, pleasant and conversant ABDOMINAL EXAMINATION: Abdomen soft, nondistended. No tenderness to palpation. Fundus firm at U-2. No fundal tenderness. EXTREMITIES: No edema PSYCHIATRIC EXAMINATION: Affect appropriate LABORATORY DATA: Please see below. ACTIVITY: Pelvic rest for 6 weeks. DIET: Regular DISCHARGE PLAN: Discharge home or to boarder DISPOSITION: .Discharge home or to boarder on [id number] DISCHARGE INSTRUCTIONS: 1. Pelvic rest for 6weeks ITEMS TO FOLLOWUP ON ON OUTPATIENT: 1. appointment in 6-8 weeks after delivery. DISCHARGE CONDITION: Stable TIME SPENT ON DISCHARGE: Greater than 20 minutes. Shama Tatum DO Vital Signs/I&Os Vital Signs Date Time Temp Pulse Resp B/P (MAP) Pulse Ox O2 Delivery O2 Flow Rate FiO2 09/26/20 05:45 97.9 68 20 142/80 (100) 95 Room Air Microbiology Microbiology 09/20/20 Group B Streptococcus Screen (ANDRE) - Final, Complete Discharge Medications Scheduled No122/Iron/Folic Acid ( Multi Tablet) 1 Each Tablet, 1 TAB PO DAILY, (Reported) Scheduled PRN Acetaminophen (Acetaminophen) 500 Mg Tablet, 1,000 MG PO Q6HP PRN for PAIN LEVEL 6-10 Benzocaine (Americaine) 20% Oint...g., 0 DOSE TOP Q4H PRN for PAIN Ibuprofen (Ibuprofen) 600 Mg Tablet, 600 MG PO Q6HP PRN for PAIN LEVEL 1-5 Allergies Coded Allergies: No Known Allergies (Unverified , 04/03/16) SHAMA TATUM DO Sep 26, 2020 07:02
[2020-09-26] MEDS: PRENATAL VITAMINS CHEWABLE TABLET PO SCH (10:53)
== END 2020-09-26 11:00 | disposition home or self-care (01) | DRG 807 ==
LOC: M LDO 14:27 → M LDI 16:02 → M OBS 09-22 14:08 → M LDI 09-24 05:46 → M OBS 09-24 19:48
PROVIDERS: ADMIT Registered Nurse; ATTEND Obstetrics & Gynecology
PROC: 10E0XZZ Delivery of Products of Conception, External Approach (ICD-10-PCS; principal; 2020-09-24)
PROC: 3E033VJ Introduction of Other Hormone into Peripheral Vein, Percutaneous Approach (ICD-10-PCS; 2020-09-24)
DX: O42.113 Preterm premature rupture of membranes, onset of labor more than 24 hours following rupture, third trimester (principal); Z37.0 Single live birth; Z3A.33 33 weeks gestation of pregnancy; O99.824 Streptococcus B carrier state complicating childbirth; O69.81X0 Labor and delivery complicated by cord around neck, without compression, not applicable or unspecified

== ENCOUNTER → 2021-01-09 | Outpatient (REF) | payer MEDICAID ==
[~2021-01-09] MED LIST changes: +ACET-683 PO; +AMER20OI TOP; +IBUP-1022 PO
[2021-01-09 12:16] LABS: HEMATOCRIT 37.8 % (36.0-47.0); MEAN CORPUSCULAR HEMOGLOBIN 26.3 pg (27.0-33.0); MEAN CORPUSCULAR HGB CONC 31.7 g/dl (32.0-36.5); MEAN CORPUSCULAR VOLUME 82.9 fl (80.0-96.0); PLATELET COUNT, AUTOMATED 304 10^3/uL (150-450); RED BLOOD COUNT 4.56 10^6/uL (4.00-5.40); WHITE BLOOD COUNT 8.6 10^3/uL (4.0-10.0)
[2021-01-09 13:33] LABS: HCG, SERUM QUANTITATIVE 7809 MIU/ML; HEPATITIS B SURFACE ANTIGEN NEGATIVE (NEGATIVE); HIV 1&2 SCREEN CENTAUR NEGATIVE (NEGATIVE)
== END ==
LOC: M LAB REF 11:39
PROVIDERS: ATTEND Advanced Practice Midwife
DX: Z36.89 Encounter for other specified antenatal screening (principal)

== ENCOUNTER 2021-02-18 22:15 | Emergency (ER) | payer MEDICAID ==
[~2021-02-18] VITALS: Ht 157.5 cm; Wt 84.5 kg
[2021-02-18 22:16] VITALS: BP 130/85
[2021-02-18 23:13] LABS: BASO % 0.4 % (0.0-1.0); EOS # 0.1 10^3/uL (0.0-0.5); EOS % 1.2 % (0.0-3.0); HEMOGLOBIN 12.4 g/dl (12.0-15.5); LYMPH # 1.3 10^3/uL (1.5-5.0); LYMPH % 25.3 % (24.0-44.0); MEAN CORPUSCULAR HEMOGLOBIN 26.7 pg (27.0-33.0); MEAN CORPUSCULAR HGB CONC 31.8 g/dl (32.0-36.5); MEAN CORPUSCULAR VOLUME 84.1 fl (80.0-96.0); MONO # 0.5 10^3/uL (0.0-0.8); MONO % 8.8 % (2.0-8.0); NEUTROPHILS # 3.3 10^3/uL (1.5-8.5); NEUTROPHILS % 63.9 % (36.0-66.0); PLATELET COUNT, AUTOMATED 245 10^3/uL (150-450); RED BLOOD COUNT 4.64 10^6/uL (4.00-5.40); WHITE BLOOD COUNT 5.1 10^3/uL (4.0-10.0)
[2021-02-18 23:41] LABS: BILIRUBIN,DIRECT 0.1 MG/DL (0.0-0.2); BILIRUBIN,TOTAL 0.3 MG/DL (0.2-1.0); TOTAL PROTEIN 6.8 GM/DL (6.4-8.2)
[2021-02-19] MEDS ORDERED: ONDANSETRON 4MG/2ML VIAL IV ONE (00:45)
[2021-02-19] MEDS ORDERED: NS 500 ML IV ONE (00:45)
[2021-02-19] MEDS ORDERED: ONDA4TAB6 PO (02:55)
--- NOTE | 2021-02-19 09:52 | REP ---
INDICATION: cramping. Preliminary report was given by Catherine johnson at the time the exam was performed. COMPARISON: None. TECHNIQUE: Transabdominal imaging FINDINGS: Within the uterus there is an anechoic structure with increased echoes surrounding it consistent with a decidual reaction. Within the gestational sac there is echogenic material consistent with a pole the mean crown-rump length measurement of which is consistent with an 11 week 5 day gestational age. Based on that the estimated date of delivery is 09/05/2021. Doppler interrogation of the heart shows a heart rate of 149 beats per minute. There is no evidence of a chorionic or subchorionic abnormality. A yolk sac is identified. No maternal adnexal abnormality was recorded. IMPRESSION: Early OB ultrasound as described above. <Electronically signed by Zana Abarca > 02/19/21 [id number]
== END 2021-02-19 03:03 | disposition home or self-care (01) ==
LOC: M ED 22:22
DX: O21.9 Vomiting of pregnancy, unspecified (principal); Z3A.11 11 weeks gestation of pregnancy; Z87.440 Personal history of urinary (tract) infections
CPT/HCPCS: 76801; 80047; 80076; 81001; 83690; 84702; 85025; 96361; 96374; 99284; J2405

== ENCOUNTER 2021-05-01 20:57 | Emergency (ER) | payer MEDICAID ==
[~2021-05-01] VITALS: Ht 160 cm; Wt 89.1 kg
[2021-05-02 00:02] VITALS: BP 139/98
== END 2021-05-02 00:18 | disposition left against medical advice (07) ==
LOC: M ED 20:57
DX: Z53.29 Procedure and treatment not carried out because of patient's decision for other reasons (principal)

== ENCOUNTER → 2021-06-12 | Outpatient (CLI) | payer MEDICAID ==
[2021-06-12 13:25] LABS: HEMATOCRIT 32.5 % (36.0-47.0); HEMOGLOBIN 10.7 g/dl (12.0-15.5); MEAN CORPUSCULAR HEMOGLOBIN 27.6 pg (27.0-33.0); MEAN CORPUSCULAR HGB CONC 32.9 g/dl (32.0-36.5); PLATELET COUNT, AUTOMATED 252 10^3/uL (150-450); RED BLOOD COUNT 3.87 10^6/uL (4.00-5.40); WHITE BLOOD COUNT 8.6 10^3/uL (4.0-10.0)
== END ==
LOC: M LAB 11:35
PROVIDERS: ATTEND Obstetrics & Gynecology
DX: Z34.82 Encounter for supervision of other normal pregnancy, second trimester (principal)

== ENCOUNTER → 2021-07-07 | Outpatient (REF) | payer OTHER, MEDICAID | LOC: M LAB REF 17:08 | PROVIDERS: ATTEND Advanced Practice Midwife | DX: Z87.51 Personal history of pre-term labor (principal); Z34.83 Encounter for supervision of other normal pregnancy, third trimester ==

== ENCOUNTER 2021-07-25 11:00 | Outpatient (CLI) | payer OTHER ==
[~2021-07-25] VITALS: Ht 162.6 cm; Wt 90.9 kg
[2021-07-25] VITALS (8 sets, daily range): BP systolic 120–170; BP diastolic 63–98
[2021-07-25] MEDS ORDERED: HOME MED LIST COMPLETE! XX SCH (11:25)
[2021-07-25 12:25] LABS: HEMATOCRIT 31.8 % (36.0-47.0); MEAN CORPUSCULAR HEMOGLOBIN 25.8 pg (27.0-33.0); MEAN CORPUSCULAR HGB CONC 31.4 g/dl (32.0-36.5); MEAN CORPUSCULAR VOLUME 82.2 fl (80.0-96.0); PLATELET COUNT, AUTOMATED 233 10^3/uL (150-450); RED BLOOD COUNT 3.87 10^6/uL (4.00-5.40); WHITE BLOOD COUNT 9.3 10^3/uL (4.0-10.0)
[2021-07-25 12:46] LABS: ALT/SGPT 9 U/L (12-78); BILIRUBIN,TOTAL 0.5 MG/DL (0.2-1.0); CREATININE FOR GFR 0.55 MG/DL (0.55-1.30); GLOMERULAR FILTRATION RATE > 60.0 (>60); LDH LACTATE DEHYDROGENASE 205 U/L (84-246); URIC ACID 4.5 MG/DL (2.6-6.0)
[2021-07-25 13:36] LABS: TOTAL PROTEIN,RANDOM URINE 32.3 MG/DL (0.0-12.0)
== END 2021-07-25 14:04 | disposition home or self-care (01) ==
LOC: M LDO 11:00
PROVIDERS: ATTEND Obstetrics & Gynecology
DX: O26.853 Spotting complicating pregnancy, third trimester (principal); O26.893 Other specified pregnancy related conditions, third trimester; R25.2 Cramp and spasm; Z3A.34 34 weeks gestation of pregnancy

== ENCOUNTER 2021-08-02 21:13 | Outpatient (CLI) | payer OTHER ==
[~2021-08-02] VITALS: Ht 160 cm; Wt 91.1 kg
[2021-08-02 21:30] VITALS: BP 137/65
[2021-08-02] MEDS ORDERED: HOME MED LIST COMPLETE! XX SCH (21:35)
--- NOTE | 2021-08-02 22:28 | IPNPDOC ---
Text Note Date of Service The patient was seen on 08/02/21. NOTE S: Pt presents to L&D triage with vaginal bleeding after intercourse. Pt states that at home, she was bleeding enough to fill a pad. She complains of cramping but no ctx. No lof. +FM O: FHT 120 mod + accel no decel TOCO acontractile VS BP 137/65 HR 81 RR 18 T 97.8 Gen: alert, oriented, no distress Cards: RRR Pulm: CTAB Abd: gravid, nontender SSE: two scopettes worth of dark red blood in the vault, no pooling of fluid, slow trickle from the cervix A/P: 20yo at 35w0d who presents with vaginal bleeding - cervical bleeding based on SSE - dx w/ chlamydia on 07/07, s/p treatment - pt w/ known advanced cervical dilation - no evidence of PROM on exam - reactive NST, acontractile - will keep for observation/prolonged monitoring - plan to dc home if bleeding stable and FHT is reassuring VS,Alejandro, I+O VS, Alejandro, I+O Vital Signs Date Time Temp Pulse Resp B/P (MAP) Pulse Ox O2 Delivery O2 Flow Rate FiO2 08/02/21 21:30 97.4 81 18 137/65 (89) PRETTY HENNESSY MD Aug 02, 2021 22:28
[2021-08-02 23:25] VITALS: BP 167/83
[2021-08-02 23:30] VITALS: BP 122/64
== END 2021-08-02 23:37 | disposition home or self-care (01) ==
LOC: M LDO 21:13
PROVIDERS: ATTEND Obstetrics & Gynecology
DX: O46.93 Antepartum hemorrhage, unspecified, third trimester (principal); R25.2 Cramp and spasm; Z3A.35 35 weeks gestation of pregnancy

== ENCOUNTER → 2021-08-12 | Outpatient (REF) | payer OTHER, MEDICAID ==
[~2021-08-12] MED LIST changes: +COLA100C5 PO
== END ==
LOC: M LAB REF 11:47
PROVIDERS: ATTEND Advanced Practice Midwife
DX: Z36.85 Encounter for antenatal screening for Streptococcus B (principal); Z3A.00 Weeks of gestation of pregnancy not specified

== ENCOUNTER → 2021-08-12 | Outpatient (REF) | payer OTHER, MEDICAID ==
[2021-08-12 12:24] LABS: TOTAL PROTEIN,RANDOM URINE 18.9 MG/DL (0.0-12.0)
[2021-08-12 12:40] LABS: HEMOGLOBIN 9.7 g/dl (12.0-15.5); MEAN CORPUSCULAR HEMOGLOBIN 25.3 pg (27.0-33.0); MEAN CORPUSCULAR HGB CONC 31.3 g/dl (32.0-36.5); MEAN CORPUSCULAR VOLUME 80.9 fl (80.0-96.0); PLATELET COUNT, AUTOMATED 226 10^3/uL (150-450); RED BLOOD COUNT 3.83 10^6/uL (4.00-5.40); WHITE BLOOD COUNT 7.6 10^3/uL (4.0-10.0)
[2021-08-12 17:12] LABS: ALT/SGPT 8 U/L (12-78); BILIRUBIN,TOTAL 0.4 MG/DL (0.2-1.0); CREATININE FOR GFR 0.63 MG/DL (0.55-1.30); GLOMERULAR FILTRATION RATE > 60.0 (>60); LDH LACTATE DEHYDROGENASE 238 U/L (84-246); URIC ACID 4.4 MG/DL (2.6-6.0)
== END ==
LOC: M LAB REF 11:46
PROVIDERS: ATTEND Advanced Practice Midwife
DX: Z36.9 Encounter for antenatal screening, unspecified (principal); O12.10 Gestational proteinuria, unspecified trimester; Z3A.00 Weeks of gestation of pregnancy not specified

== ENCOUNTER 2021-08-17 12:20 | Inpatient (IN) | payer OTHER, MEDICAID ==
[~2021-08-17] VITALS: Ht 160 cm; Wt 92.6 kg
[2021-08-17] VITALS (8 sets, daily range): BP systolic 119–162; BP diastolic 62–84
[~2021-08-17 12:20] MED LIST changes: -COLA100C5 PO
[2021-08-17] MEDS ORDERED: HOME MED LIST COMPLETE! XX SCH (12:40)
[2021-08-17] MEDS ORDERED: OXYTOCIN DRIP 30 UNITS in IV 1 EA IV PRN (13:15)
[2021-08-17] MEDS ORDERED: TRANEXAMIC ACID INJection 1,000 MG in NS 100 ML IV PRN (13:15)
[2021-08-17] MEDS ORDERED: LIDOCAINE 1% MDV 20ML VIAL INFIL PRN (13:15)
[2021-08-17] MEDS ORDERED: CARBOPROST TROMETHAMINE 250 MCG/ML AMP IM PRN (13:15)
[2021-08-17] MEDS ORDERED: METHYLERGONOVINE MALEATE 0.2 MG/ML VIAL (J2210) IM PRN (13:15)
[2021-08-17] MEDS ORDERED: OXYTOCIN 30 UNITS IN 0.9% NaCl 500ML IV BAG (J2590) As Ordered ONE (13:23)
[2021-08-17 13:32] LABS: HEMATOCRIT 31.9 % (36.0-47.0); MEAN CORPUSCULAR HEMOGLOBIN 25.3 pg (27.0-33.0); MEAN CORPUSCULAR HGB CONC 31.3 g/dl (32.0-36.5); MEAN CORPUSCULAR VOLUME 80.8 fl (80.0-96.0); PLATELET COUNT, AUTOMATED 232 10^3/uL (150-450); RED BLOOD COUNT 3.95 10^6/uL (4.00-5.40); WHITE BLOOD COUNT 11.1 10^3/uL (4.0-10.0)
[2021-08-17] MEDS ORDERED: DOCUSATE SODIUM 100MG CAPSULE PO PRN (13:50)
[2021-08-17] MEDS ORDERED: MEASLES,MUMPS,RUBELLA VACCINE INJ (MMR-II) (90707) SC SCH (13:50)
[2021-08-17] MEDS ORDERED: RHOGAM 300 MCG (1500 IU) INJ (J2790) IM SCH (13:50)
[2021-08-17] MEDS ORDERED: METHYLERGONOVINE MALEATE 0.2 MG TAB PO PRN (13:50)
[2021-08-17] MEDS ORDERED: IBUPROFEN 600MG TAB PO PRN (13:50)
[2021-08-17] MEDS ORDERED: MOM 30ML SUSPENSION UDC PO PRN (13:50)
[2021-08-17] MEDS ORDERED: ACETAMINOPHEN TAB 650MG DOSE (2X325MG) PO PRN (13:50)
[2021-08-17] MEDS ORDERED: ANUSOL HC CREAM 30GM TOP PRN (13:50)
[2021-08-17] MEDS ORDERED: DIBUCAINE 1% OINTMENT 30GM TOP PRN (13:50)
[2021-08-17] MEDS ORDERED: BUTORPHANOL 2 MG/ML INJ (J0595) IV ONE (14:00)
[2021-08-17] MEDS ORDERED: PROMETHAZINE INJ 25 MG/ML VIAL (J2550) IV ONE (14:00)
[2021-08-17] MEDS: PRENATAL VITAMINS CHEWABLE TABLET PO SCH (14:07)
[2021-08-17] MEDS: ACETAMINOPHEN 500 MG TAB PO PRN ×2 (14:10→21:07)
[2021-08-17] MEDS: IBUPROFEN 800 MG TAB PO PRN ×2 (14:10→23:47)
[2021-08-17 15:12] LABS: ALT/SGPT 10 U/L (12-78); BILIRUBIN,TOTAL 0.4 MG/DL (0.2-1.0); CREATININE FOR GFR 0.62 MG/DL (0.55-1.30); GLOMERULAR FILTRATION RATE > 60.0 (>60); LDH LACTATE DEHYDROGENASE 189 U/L (84-246); URIC ACID 4.7 MG/DL (2.6-6.0)
[2021-08-18] MEDS: ACETAMINOPHEN 500 MG TAB PO PRN ×2 (03:15→11:22)
[2021-08-18 05:53] VITALS: BP 130/71
[2021-08-18] MEDS: PRENATAL VITAMINS CHEWABLE TABLET PO SCH (08:24)
[2021-08-18] MEDS ORDERED: INFLUENZA QUADRIVALENT PF VACCINE 0.5ML SYRINGE IM ONE (09:00)
[2021-08-18] MEDS ORDERED: IBUP-1022 PO (11:12)
[2021-08-18] MEDS ORDERED: ACET-683 PO (11:12)
[2021-08-18] MEDS ORDERED: COLA100C5 PO (11:12)
[2021-08-18] MEDS ORDERED: medroxyPROGESTERone ACET IM SUSP 150 MG/ML VIAL (J1050) IM ONE (12:00)
== END 2021-08-18 18:56 | disposition home or self-care (01) | DRG 560 ==
LOC: M LDO 12:20 → M LDI 13:17 → M OBS 16:13
PROVIDERS: ADMIT Advanced Practice Midwife; ATTEND Advanced Practice Midwife
PROC: 10E0XZZ Delivery of Products of Conception, External Approach (ICD-10-PCS; principal; 2021-08-17)
PROC: 10907ZC Drainage of Amniotic Fluid, Therapeutic from Products of Conception, Via Natural or Artificial Opening (ICD-10-PCS; 2021-08-17)
DX: O98.32 Other infections with a predominantly sexual mode of transmission complicating childbirth (principal); A74.9 Chlamydial infection, unspecified; Z3A.37 37 weeks gestation of pregnancy; Z37.0 Single live birth; O13.4 Gestational [pregnancy-induced] hypertension without significant proteinuria, complicating childbirth; O77.0 Labor and delivery complicated by meconium in amniotic fluid; O69.81X0 Labor and delivery complicated by cord around neck, without compression, not applicable or unspecified; O64.5XX0 Obstructed labor due to compound presentation, not applicable or unspecified

== ENCOUNTER 2022-03-18 11:48 | Emergency (ER) | payer MEDICAID, OTHER ==
[~2022-03-18] VITALS: Ht 160 cm; Wt 88.5 kg
[~2022-03-18 11:48] MED LIST changes: +COLA100C5 PO; +ETON68IM SC; -NEXP1IMP SC
[2022-03-18 11:49] VITALS: BP 134/79
== END 2022-03-18 13:28 | disposition left against medical advice (07) ==
LOC: M ED 11:48
DX: Z53.29 Procedure and treatment not carried out because of patient's decision for other reasons (principal)

== ENCOUNTER 2022-06-18 19:18 | Emergency (ER) | payer OTHER ==
[~2022-06-18] VITALS: Ht 160 cm; Wt 84.1 kg
[2022-06-18 19:18] VITALS: BP 129/73
== END 2022-06-18 22:27 | disposition left against medical advice (07) ==
LOC: M ED 19:18
DX: Z53.21 Procedure and treatment not carried out due to patient leaving prior to being seen by health care provider (principal)

== ENCOUNTER 2022-07-07 11:19 | Emergency (ER) | payer OTHER ==
[~2022-07-07] VITALS: Ht 160 cm; Wt 78.3 kg
[2022-07-07 11:20] VITALS: BP 158/81
== END 2022-07-07 16:05 | disposition left against medical advice (07) ==
LOC: M ED 11:19
DX: Z53.21 Procedure and treatment not carried out due to patient leaving prior to being seen by health care provider (principal)

== ENCOUNTER 2023-11-20 16:44 | Emergency (ER) | payer OTHER ==
[~2023-11-20] VITALS: Ht 157.5 cm; Wt 76.7 kg
[2023-11-20 16:44] VITALS: BP 164/95; TEMP 97.5; O2SAT 100
[2023-11-20] MEDS: AMOXICILLIN 500 MG CAP PO ONE (17:43)
[2023-11-20] MEDS: IBUPROFEN 600MG TAB PO ONE (17:43)
[2023-11-20] MEDS ORDERED: AMOX500C PO (17:49)
[2023-11-20] MEDS ORDERED: IBUP-1022 PO (17:49)
== END 2023-11-20 17:53 | disposition home or self-care (01) ==
LOC: M ED 16:44
DX: K04.7 Periapical abscess without sinus (principal); Z79.2 Long term (current) use of antibiotics; Z79.1 Long term (current) use of non-steroidal anti-inflammatories (NSAID)

== ENCOUNTER 2024-07-17 11:11 | Emergency (ER) | payer OTHER ==
[~2024-07-17] VITALS: Ht 160 cm; Wt 78.0 kg
[~2024-07-17 11:11] MED LIST changes: +AMOX500C PO; +ONDA-282 PO; -ONDA4TAB6 PO
[2024-07-17 13:01] LABS: HCG, SERUM QUALITATIVE NEGATIVE (NEGATIVE)
[2024-07-17 14:46] VITALS: BP 125/66; TEMP 98.3; O2SAT 99
== END 2024-07-17 14:58 | disposition home or self-care (01) ==
LOC: M ED 11:11
DX: M67.834 Other specified disorders of tendon, left wrist (principal); W23.0XXA Caught, crushed, jammed, or pinched between moving objects, initial encounter; Y92.009 Unspecified place in unspecified non-institutional (private) residence as the place of occurrence of the external cause; Y93.9 Activity, unspecified; Y99.9 Unspecified external cause status

== ENCOUNTER 2024-08-31 20:30 | Emergency (ER) | payer OTHER ==
[~2024-08-31] VITALS: Ht 160 cm; Wt 74.6 kg
[2024-08-31 22:12] LABS: BASO # 0.1 10^3/uL (0.0-0.2); BASO % 0.3 % (0.0-1.0); EOS % 0.2 % (0.0-3.0); HEMATOCRIT 41.6 % (36.0-47.0); LYMPH % 11.2 % (24.0-44.0); MEAN CORPUSCULAR HEMOGLOBIN 29.3 pg (27.0-33.0); MEAN CORPUSCULAR HGB CONC 33.7 g/dl (32.0-36.5); MONO # 1.1 10^3/uL (0.0-0.8); MONO % 6.2 % (2.0-8.0); NEUTROPHILS # 14.5 10^3/uL (1.5-8.5); NEUTROPHILS % 81.8 % (36.0-66.0); PLATELET COUNT, AUTOMATED 286 10^3/uL (150-450); RED BLOOD COUNT 4.78 10^6/uL (4.00-5.40); WHITE BLOOD COUNT 17.7 10^3/uL (4.0-10.0)
[2024-08-31 22:32] LABS: KETONE, URINE AUTO RFX NEGATIVE (NEGATIVE); NITRITE, URINE AUTO RFX NEGATIVE (NEGATIVE); RBC, URINE AUTO RFX 2 /HPF (0-3); SQUAM EPITHELIAL CELL UR AURFX 5 /HPF (0-6); WBC, URINE AUTO RFX 2 /HPF (0-3)
[2024-08-31 22:33] LABS: ALBUMIN 3.8 G/DL (3.2-5.2); ALKALINE PHOSPHATASE 67 U/L (35-104); ALT/SGPT 18 U/L (7.0-40); AST/SGOT 33 U/L (<34); BILIRUBIN,DIRECT 0.2 MG/DL (<0.4); BILIRUBIN,TOTAL 0.8 MG/DL (0.3-1.2); BLOOD UREA NITROGEN 8 MG/DL (9-23); CALCIUM LEVEL 9.7 MG/DL (8.5-10.1); CARBON DIOXIDE LEVEL 25 MMOL/L (20-31); CHLORIDE LEVEL 106 MMOL/L (98-107); CREATININE FOR GFR 0.68 MG/DL (0.55-1.30); GLOMERULAR FILTRATION RATE > 60.0 (>60); GLUCOSE, FASTING 94 MG/DL (60-100); HCG, SERUM QUALITATIVE NEGATIVE (NEGATIVE); LEUKOCYTE ESTERASE UR AUTO RFX 1+ (NEGATIVE); LIPASE 25 U/L (12-53); POTASSIUM SERUM 4.5 MMOL/L (3.5-5.1); SODIUM LEVEL 139 MMOL/L (136-145); TOTAL PROTEIN 7.6 G/DL (5.7-8.2)
[2024-08-31] MEDS ORDERED: ISOVUE-370 76% 100ML VIAL As Ordered ONE (22:48)
[2024-08-31] MEDS: ACETAMINOPHEN *IV* 1,000 MG in IV 1 EA IV ONE (23:01)
[2024-08-31] MEDS: LR 1,000 ML IV ONE (23:01)
[2024-09-01 00:39] LABS: GC DNA AMPLIFICATION NEGATIVE (NEGATIVE)
[2024-09-01 01:51] LABS: Trichomonas vaginalis (AMP) NOT DETECTED (NEGATIVE)
[2024-09-01 03:40] LABS: BASO % 0.2 % (0.0-1.0); EOS # 0.1 10^3/uL (0.0-0.5); EOS % 0.4 % (0.0-3.0); HEMATOCRIT 35.6 % (36.0-47.0); LYMPH # 2.8 10^3/uL (1.5-5.0); LYMPH % 20.8 % (24.0-44.0); MEAN CORPUSCULAR HEMOGLOBIN 29.6 pg (27.0-33.0); MEAN CORPUSCULAR HGB CONC 33.7 g/dl (32.0-36.5); MEAN CORPUSCULAR VOLUME 87.7 fl (80.0-96.0); MONO # 0.8 10^3/uL (0.0-0.8); NEUTROPHILS # 9.6 10^3/uL (1.5-8.5); NEUTROPHILS % 72.2 % (36.0-66.0); PLATELET COUNT, AUTOMATED 228 10^3/uL (150-450); RED BLOOD COUNT 4.06 10^6/uL (4.00-5.40); WHITE BLOOD COUNT 13.2 10^3/uL (4.0-10.0)
[2024-09-01] MEDS: KETOROLAC 30 MG/ML 1ML VIAL IV ONE (03:44)
[2024-09-01] MEDS: CEFDINIR 300 MG CAP (OMNICEF) PO ONE (03:44)
[2024-09-01 07:00] VITALS: BP 123/63
[2024-09-01] MEDS ORDERED: IBUP-1022 PO (07:06)
[2024-09-01 07:15] VITALS: TEMP 97.9; O2SAT 98
== END 2024-09-01 07:22 | disposition home or self-care (01) ==
LOC: M ED 20:30
DX: N30.00 Acute cystitis without hematuria (principal); N83.292 Other ovarian cyst, left side
CPT/HCPCS: 74177; 76856; 80048; 80076; 81001; 83690; 84703; 85025; 87086; 87661; 87810; 87850; 93976; 96365; 96366; 96375; 99284; J0131; J1885; Q9967

== ENCOUNTER 2025-05-09 11:22 | Emergency (ER) | payer OTHER ==
[~2025-05-09] VITALS: Ht 160 cm; Wt 73.6 kg
[~2025-05-09 11:22] MED LIST changes: -IBUP-1022 PO; +IBUP600T42 PO
[2025-05-09] MEDS: ONDANSETRON 4MG 2ML VIAL IV ONE (12:21)
[2025-05-09] MEDS: NS (Normal Saline) 0.9% 1,000 ML IV ONE (12:23)
[2025-05-09 12:24] LABS: BASO # 0.0 10^3/uL (0.0-0.2); BASO % 0.5 % (0.0-1.0); EOS # 0.1 10^3/uL (0.0-0.5); EOS % 2.0 % (0.0-3.0); LYMPH # 1.4 10^3/uL (1.5-5.0); LYMPH % 23.1 % (24.0-44.0); MONO # 0.6 10^3/uL (0.0-0.8); MONO % 10.0 % (2.0-8.0); NEUTROPHILS # 3.8 10^3/uL (1.5-8.5); NEUTROPHILS % 64.2 % (36.0-66.0)
[2025-05-09] MEDS ORDERED: HOME MED LIST COMPLETE! XX SCH (12:25)
[2025-05-09 12:55] LABS: ALT/SGPT 18 U/L (7.0-40); AST/SGOT 30 U/L (<34); CALCIUM LEVEL 9.3 MG/DL (8.5-10.1); CARBON DIOXIDE LEVEL 25 MMOL/L (20-31); CHLORIDE LEVEL 109 MMOL/L (98-107); CREATININE FOR GFR 0.72 MG/DL (0.55-1.30); GLOMERULAR FILTRATION RATE > 90.0 (>60); POTASSIUM SERUM 4.9 MMOL/L (3.5-5.1); SODIUM LEVEL 144 MMOL/L (136-145)
[2025-05-09 13:19] LABS: HCG, SERUM QUALITATIVE NEGATIVE (NEGATIVE)
[2025-05-09 13:35] LABS: KETONE, URINE AUTO RFX NEGATIVE (NEGATIVE); MUCUS, URINE RFX LARGE (NEGATIVE); NITRITE, URINE AUTO RFX NEGATIVE (NEGATIVE); RBC, URINE AUTO RFX 0 /HPF (0-3); SQUAM EPITHELIAL CELL UR AURFX 8 /HPF (0-6)
[2025-05-09 13:37] LABS: LEUKOCYTE ESTERASE UR AUTO RFX 2+ (NEGATIVE); WBC, URINE AUTO RFX 92 /HPF (0-3)
[2025-05-09] MEDS: KETOROLAC 30 MG/ML 1 ML VIAL IV ONE (13:57)
[2025-05-09] MEDS ORDERED: ISOVUE-370 76% 100 ML VIAL As Ordered ONE (14:09)
[2025-05-09 15:24] VITALS: BP 142/74; TEMP 97.9; O2SAT 100
[2025-05-09] MEDS ORDERED: AMOX875T2 PO (15:56)
[2025-05-09] MEDS ORDERED: ONDA-282 PO (15:57)
== END 2025-05-09 16:07 | disposition home or self-care (01) ==
LOC: M ED 12:28
DX: K52.9 Noninfective gastroenteritis and colitis, unspecified (principal); F17.290 Nicotine dependence, other tobacco product, uncomplicated
CPT/HCPCS: 74177; 80047; 80048; 80076; 81001; 83690; 84703; 85025; 87088; 87186; 96361; 96374; 96375; 99284; J1885; J2405; Q9967